=== PATIENT | male | born 1990 | race African-American/Black ===

== ENCOUNTER 2018-10-09 13:49 | Emergency (ER) | payer SELFPAY ==
[~2018-10-09] VITALS: Ht 170.2 cm; Wt 76.7 kg
[2018-10-09 14:02] VITALS: BP_SYST 126
[2018-10-09] MEDS ORDERED: ACETAMINOPHEN/CODEINE 300 MG-30 MG TABLET PO ONE (14:15)
[2018-10-09 14:27] VITALS: BP_SYST 126
== END 2018-10-09 14:27 | disposition home or self-care (01) ==
LOC: SED 13:49
DX: G44.209 Tension-type headache, unspecified, not intractable (principal); K02.9 Dental caries, unspecified; K08.89 Other specified disorders of teeth and supporting structures; R68.84 Jaw pain; J45.909 Unspecified asthma, uncomplicated; R03.0 Elevated blood-pressure reading, without diagnosis of hypertension; Z88.6 Allergy status to analgesic agent
CPT/HCPCS: 99283